=== PATIENT | female | born 1980 | race Two or more races ===

== ENCOUNTER 2021-02-21 11:51 | Emergency (ER) | payer OTHER ==
[~2021-02-21] VITALS: Ht 162.6 cm; Wt 56.7 kg
[~2021-02-21 11:51] MED LIST: NEURONTIN300 MG PO; SYNTHROID50 MCG PO
== END 2021-02-21 22:57 | disposition home or self-care (01) ==
LOC: ER 11:51
DX: N83.291 Other ovarian cyst, right side (principal)
CPT/HCPCS: 74177; Q9965; 76856

== ENCOUNTER → 2021-06-12 | Day surgery (SDC) | payer OTHER ==
[~2021-06-12] MED LIST changes: +D3 + K2 DOTS 11 EACH PO; +KELP150 MC1 PO
== END | disposition home or self-care (01) ==
LOC: ADM 06-10 09:15 → CIR.AMB 09:15
PROVIDERS: ATTEND Obstetrics & Gynecology
DX: C53.0 Malignant neoplasm of endocervix (principal); Z88.8 Allergy status to other drugs, medicaments and biological substances; Z86.16 Personal history of COVID-19; Z20.822 Contact with and (suspected) exposure to COVID-19